=== PATIENT | female | born 1980 | race Caucasian/White ===

== ENCOUNTER 2016-08-09 16:42 | Emergency (ER) | payer OTHER ==
[~2016-08-09] VITALS: Ht 160 cm; Wt 53.2 kg
[2016-08-09 16:49] VITALS: TEMP 98.6
[2016-08-09 17:39] LABS: BASO % 0.4 % (0.0-2.0); EOS % 0.2 % (0-4.0); GRAN # 3.6 (1.4-6.5); GRAN % 79.7 % (42.2-75.2); LYMPH # 0.4 (1.2-3.4); LYMPH % 9.4 % (20.0-51.0); MEAN CELL VOLUME 99 fl (80.0-100.0); MEAN CORPUSCULAR HGB CONC 34 g/dl (33.0-37.0); MEAN PLATELET VOLUME 10.6 fl (7.4-10.4); MONO # 0.4 (0.1-0.6); MONO % 8.5 % (1.7-9.3); PLATELET COUNT 164 K/mm3 (130-400); RED BLOOD COUNT 2.88 M/mm3 (4.10-5.30); REDCELL DISTRIBUTION WIDTH-CV 13.7 % (11.5-14.5); WHITE BLOOD COUNT 4.5 K/mm3 (4.8-10.8)
[2016-08-09 17:42] LABS: HEMATOCRIT 28.6 % (37.0-47.0); HEMOGLOBIN 9.8 g/dl (12.5-16.0); MEAN CORPUSCULAR HEMOGLOBIN 34 pg (27.0-31.0)
[2016-08-09 17:49] LABS: ADJUSTED CALCIUM 9.5 mg/dL (8.4-10.2); ALBUMIN 4.5 gm/dL (3.5-5.0); BILIRUBIN,TOTAL 1.2 mg/dL (0.0-1.0); CALCIUM 9.9 mg/dL (8.4-10.2); POTASSIUM 3.9 mmol/L (3.4-5.0); TOTAL PROTEIN 6.4 gm/dL (6.4-8.2)
[2016-08-09 17:51] LABS: CREATININE, serum 5.62 mg/dL (0.52-1.25)
[2016-08-09 18:07] LABS: PHOSPHOROUS 6.1 mg/dL (2.5-4.5)
[2016-08-09] MEDS ORDERED: ZOFRAN 4MG T4 MG/TAB PO (18:38)
[2016-08-09 19:37] VITALS: BP 180/115; PULSE 80
== END 2016-08-09 19:40 | disposition home or self-care (01) ==
LOC: COL.ER 16:42
PROVIDERS: Emergency Medicine
DX: I12.9 Hypertensive chronic kidney disease with stage 1 through stage 4 chronic kidney disease, or unspecified chronic kidney disease (principal); N17.9 Acute kidney failure, unspecified; Z94.0 Kidney transplant status; N18.9 Chronic kidney disease, unspecified; R11.2 Nausea with vomiting, unspecified; R10.13 Epigastric pain
CPT/HCPCS: J2270; J2405; J3360; J7030

== ENCOUNTER 2016-09-09 01:38 | Inpatient (IN) | payer OTHER ==
[2016-09-09] VITALS (608 sets, daily range): BP systolic 117–204; BP diastolic 85–148; PULSE 68–99; TEMP 98–98.6; O2SAT 88–100
[~2016-09-09] VITALS: Ht 152.4 cm; Wt 49.0 kg
[~2016-09-09 01:38] MED LIST: ZOFRAN 4MG T4 MG/TAB PO
[2016-09-09] MEDS ORDERED: PEPCID 20MG TAB20 MG PO (03:48)
[2016-09-09] MEDS ORDERED: PREDNISONE 5MG5 MG PO (03:49)
[2016-09-09] MEDS ORDERED: DIFLUCAN200 MG PO (03:49)
[2016-09-09] MEDS ORDERED: COREG 25MG25 MG/TAB PO (03:50)
[2016-09-09] MEDS ORDERED: ATIVAN 1MG T1 MG/TAB PO (03:50)
[2016-09-09] MEDS ORDERED: VFEND 200MG200 MG PO (03:53)
[2016-09-09 06:12] LABS: MEAN CELL VOLUME 100 fl (80.0-100.0); MEAN CORPUSCULAR HGB CONC 33 g/dl (33.0-37.0); MEAN PLATELET VOLUME 10.1 fl (7.4-10.4); PLATELET COUNT 155 K/mm3 (130-400); RED BLOOD COUNT 2.43 M/mm3 (4.10-5.30); REDCELL DISTRIBUTION WIDTH-CV 12.5 % (11.5-14.5)
[2016-09-09 06:17] LABS: CALCIUM 9.6 mg/dL (8.4-10.2); POTASSIUM 3.7 mmol/L (3.4-5.0)
[2016-09-09 06:19] LABS: HEMATOCRIT 24.4 % (37.0-47.0); HEMOGLOBIN 8.1 g/dl (12.5-16.0); MEAN CORPUSCULAR HEMOGLOBIN 33 pg (27.0-31.0)
[2016-09-09 06:21] LABS: ADD PATHOLOGY DIFF REVIEW NO; WHITE BLOOD COUNT 1.8 K/mm3 (4.8-10.8)
[2016-09-09 06:29] LABS: CREATININE, serum 5.62 mg/dL (0.52-1.25)
[2016-09-09 06:38] LABS: BAND 7 % (0-10); BASOPHIL 2 % (0-2); EOSINOPHIL 2 % (0-4); METAMYELOCYTE 2 % (0-0); NEUTROPHILS 13 % (42.0-75.2); TOTAL CELLS COUNTED 100
[2016-09-09] MEDS ORDERED: VALTREX 50500 MG/TAB PO (09:34)
[2016-09-09] MEDS ORDERED: COREG12.5 MG PO (10:26)
[2016-09-09] MEDS ORDERED: ADALAT CC30 MG PO (10:27)
[2016-09-09] MEDS ORDERED: PROGRAF 0.5MG0.5 MG PO (10:28)
== END 2016-09-09 14:20 | disposition home or self-care (01) | DRG 304 ==
LOC: MEDICAL 01:38 → EDSTATUS 02:13 → IMCU 02:13 → ICU 02:20 → IMCU 07:20
PROVIDERS: Internal Medicine
DX: I16.0 Hypertensive urgency (principal); N18.6 End stage renal disease; T86.12 Kidney transplant failure; I12.0 Hypertensive chronic kidney disease with stage 5 chronic kidney disease or end stage renal disease; R51 Headache; D63.1 Anemia in chronic kidney disease; E83.39 Other disorders of phosphorus metabolism; D72.819 Decreased white blood cell count, unspecified; Z99.2 Dependence on renal dialysis
CPT/HCPCS: J7512

== ENCOUNTER → 2016-09-11 | Outpatient (CLI) | payer OTHER ==
[~2016-09-11] MED LIST changes: +ADALAT CC30 MG PO; +ALDACTONE50 MG PO; +ATIVAN 1MG T1 MG/TAB PO; +CATAPRES-TTS 20.2 M1 TD; +CEPHALEXIN500 M1 PO; +COREG 25MG25 MG/TAB PO; +COREG12.5 MG PO; +DIFLUCAN200 MG PO; +FLEXERIL 1010 MG/TAB PO; +NEPHROCAP PO; +NORCO 325 MG-51 TAB PO; +PEPCID 20MG TAB20 MG PO; +PREDNISONE 5MG5 MG PO; +PROGRAF 0.5MG0.5 MG PO; +VALTREX 50500 MG/TAB PO; +VFEND 200MG200 MG PO
== END ==
LOC: COL.VAS 08:25
DX: N18.5 Chronic kidney disease, stage 5 (principal)
CPT/HCPCS: G0365

== ENCOUNTER 2016-09-15 15:14 | Inpatient (IN) | payer OTHER ==
[2016-09-15] VITALS (447 sets, daily range): BP systolic 108–200; BP diastolic 74–126; PULSE 59–89; TEMP 97.2–98.5; O2SAT 38–100
[~2016-09-15] VITALS: Ht 152.4 cm; Wt 53.1 kg
[~2016-09-15 15:14] MED LIST changes: -ALDACTONE50 MG PO; -CATAPRES-TTS 20.2 M1 TD; -CEPHALEXIN500 M1 PO; -FLEXERIL 1010 MG/TAB PO; -NEPHROCAP PO; -NORCO 325 MG-51 TAB PO
[2016-09-15] MEDS ORDERED: CATAPRES-TTS 20.2 M1 TD (17:09)
[2016-09-15] MEDS ORDERED: FLEXERIL 1010 MG/TAB PO (17:10)
[2016-09-15] MEDS ORDERED: NORCO 325 MG-51 TAB PO (17:11)
[2016-09-15 17:53] LABS: MEAN CELL VOLUME 102 fl (80.0-100.0); MEAN CORPUSCULAR HGB CONC 33 g/dl (33.0-37.0); MEAN PLATELET VOLUME 10.1 fl (7.4-10.4); PLATELET COUNT 183 K/mm3 (130-400); RED BLOOD COUNT 2.36 M/mm3 (4.10-5.30); WHITE BLOOD COUNT 5.9 K/mm3 (4.8-10.8)
[2016-09-15 18:06] LABS: ADJUSTED CALCIUM 9.8 mg/dL (8.4-10.2); BILIRUBIN,TOTAL 0.6 mg/dL (0.0-1.0); POTASSIUM 3.2 mmol/L (3.4-5.0); TOTAL PROTEIN 5.2 gm/dL (6.4-8.2)
[2016-09-15 18:07] LABS: ADD PATHOLOGY DIFF REVIEW NO; HEMOGLOBIN 7.8 g/dl (12.5-16.0); MEAN CORPUSCULAR HEMOGLOBIN 33 pg (27.0-31.0)
[2016-09-15 18:08] LABS: CREATININE, serum 5.51 mg/dL (0.52-1.25)
[2016-09-15 18:30] LABS: BAND 4 % (0-10); METAMYELOCYTE 1 % (0-0); NEUTROPHILS 18 % (42.0-75.2); TOTAL CELLS COUNTED 100
[2016-09-15 18:31] LABS: HYPOCHROMIA 2+
[2016-09-15 18:33] LABS: PLATELET ESTIMATE NORMAL (NORMAL)
[2016-09-16] VITALS (912 sets, daily range): BP systolic 77–101; BP diastolic 39–62; PULSE 68–89; TEMP 97.3–98.4; O2SAT 87–100
[2016-09-16 06:01] LABS: MEAN CELL VOLUME 102 fl (80.0-100.0); MEAN CORPUSCULAR HGB CONC 32 g/dl (33.0-37.0); MEAN PLATELET VOLUME 10.5 fl (7.4-10.4); PLATELET COUNT 219 K/mm3 (130-400); REDCELL DISTRIBUTION WIDTH-CV 12.6 % (11.5-14.5); WHITE BLOOD COUNT 6.4 K/mm3 (4.8-10.8)
[2016-09-16 06:03] LABS: ADD PATHOLOGY DIFF REVIEW NO; HEMATOCRIT 25.5 % (37.0-47.0); HEMOGLOBIN 8.2 g/dl (12.5-16.0); MEAN CORPUSCULAR HEMOGLOBIN 33 pg (27.0-31.0)
[2016-09-16 06:15] LABS: POTASSIUM 3.3 mmol/L (3.4-5.0)
[2016-09-16 06:19] LABS: CREATININE, serum 6.06 mg/dL (0.52-1.25)
[2016-09-16 06:30] LABS: BAND 23 % (0-10); NEUTROPHILS 18 % (42.0-75.2); TOTAL CELLS COUNTED 100
[2016-09-17] VITALS (847 sets, daily range): BP systolic 94–108; BP diastolic 61–69; PULSE 73–95; TEMP 97.4–98.7; O2SAT 75–99
[2016-09-17 06:06] LABS: CALCIUM 8.7 mg/dL (8.4-10.2); POTASSIUM 3.5 mmol/L (3.4-5.0)
[2016-09-17 06:12] LABS: CREATININE, serum 7.73 mg/dL (0.52-1.25)
[2016-09-17 07:40] LABS: BASO % 0.6 % (0.0-2.0); EOS # 0.1 (0.0-0.7); EOS % 1.3 % (0-4.0); GRAN % 31.9 % (42.2-75.2); LYMPH # 3.5 (1.2-3.4); MEAN CELL VOLUME 99 fl (80.0-100.0); MEAN CORPUSCULAR HGB CONC 34 g/dl (33.0-37.0); MEAN PLATELET VOLUME 10.4 fl (7.4-10.4); MONO # 0.6 (0.1-0.6); MONO % 9.7 % (1.7-9.3); PLATELET COUNT 195 K/mm3 (130-400); RED BLOOD COUNT 2.08 M/mm3 (4.10-5.30); REDCELL DISTRIBUTION WIDTH-CV 12.6 % (11.5-14.5); WHITE BLOOD COUNT 6.2 K/mm3 (4.8-10.8)
[2016-09-17 07:42] LABS: HEMATOCRIT 20.5 % (37.0-47.0); HEMOGLOBIN 6.9 g/dl (12.5-16.0); MEAN CORPUSCULAR HEMOGLOBIN 33 pg (27.0-31.0)
[2016-09-17 10:06] LABS: HEMATOCRIT 21.9 % (37.0-47.0); HEMOGLOBIN 7.5 g/dl (12.5-16.0)
== END 2016-09-17 22:30 | disposition home or self-care (01) | DRG 391 ==
LOC: IMCU 15:14 → ICU 15:50 → IMCU 09-16 19:30
PROVIDERS: Internal Medicine
PROC: 5A1D00Z (ICD-10-PCS; principal; 2016-09-14)
PROC: 0DB68ZX Excision of Stomach, Via Natural or Artificial Opening Endoscopic, Diagnostic (ICD-10-PCS; 2016-09-17)
DX: K29.70 Gastritis, unspecified, without bleeding (principal); N18.6 End stage renal disease; Z94.0 Kidney transplant status; I12.0 Hypertensive chronic kidney disease with stage 5 chronic kidney disease or end stage renal disease; Z99.2 Dependence on renal dialysis; D63.1 Anemia in chronic kidney disease; I16.0 Hypertensive urgency
CPT/HCPCS: J1170; J1644; J2250; J2405; J3010; J7030; J7050; J7060; J7507; J7512; Q9967

== ENCOUNTER 2017-01-29 12:25 | Outpatient (CLI) | payer OTHER ==
[~2017-01-29] VITALS: Ht 152.4 cm; Wt 50.0 kg
[2017-01-29] VITALS (10 sets, daily range): BP systolic 100–130; BP diastolic 68–95; PULSE 61–88; TEMP 98.4
[~2017-01-29 12:25] MED LIST changes: +CATAPRES-TTS 20.2 M1 TD; +FLEXERIL 1010 MG/TAB PO; +NORCO 325 MG-51 TAB PO
[2017-01-29] MEDS ORDERED: CEPHALEXIN500 M1 PO (13:16)
[2017-01-29] MEDS ORDERED: COREG 25MG25 MG/TAB PO (13:17)
[2017-01-29] MEDS ORDERED: NEPHROCAP PO (13:25)
[2017-01-29] MEDS ORDERED: ALDACTONE50 MG PO (13:52)
== END 2017-01-29 17:14 | disposition home or self-care (01) ==
LOC: COL.CAR 12:25
DX: T82.41XA Breakdown (mechanical) of vascular dialysis catheter, initial encounter (principal); N18.6 End stage renal disease
CPT/HCPCS: C1751; C1769; J1644; J2250; J3010

== ENCOUNTER → 2020-08-10 | Outpatient (CLI) | payer OTHER ==
[~2020-08-10] MED LIST changes: +ALDACTONE50 MG PO; +CEPHALEXIN500 M1 PO; +NEPHROCAP PO
== END ==
LOC: MC.RAD 08:25
DX: Z12.31 Encounter for screening mammogram for malignant neoplasm of breast (principal)